=== PATIENT | female | born 1990 ===

== ENCOUNTER 2017-12-31 17:03 | Emergency (ER) | payer SELFPAY ==
[2017-12-31 17:24] VITALS: BP 130/85; PULSE 85; RESP 16; TEMP 98; O2SAT 100
--- NOTE | 2017-12-31 19:25 | ED PDOC ---
HPI: Skin/Bite Injury Time Seen by Provider: 12/31/17 17:32 Chief Complaint (Nursing): Bite Chief Complaint (Provider): Bite History Per: Patient History/Exam Limitations: no limitations Onset/Duration Of Symptoms: Days (x1) Location Of Injury: Right: Hand (2nd digit) Additional Complaint(s): Sandra Arceo is a 27 year old female, with no significant past medical history, who presents to the emergency department after she was bit by a rat on the right hand 2nd digit onset last night. Patient's tetanus is not up to date. She denies any numbness, weakness, redness or swelling. No further medical complaints. PMD: Flavio Cottrell - Animal Bite Description Of The Attack: Unprovoked Attack Description Of The Animal: Other (rat) Past Medical History Reviewed: Historical Data, Nursing Documentation, Vital Signs Vital Signs: Last Vital Signs Temp 98.0 F 12/31/17 17:22 Pulse 85 12/31/17 17:22 Resp 16 12/31/17 17:22 BP 130/85 12/31/17 17:22 Pulse Ox 100 12/31/17 19:29 - Medical History PMH: No Chronic Diseases - Surgical History Surgical History: No Surg Hx - Family History Family History: States: Unknown Family Hx - Social History Current smoker - smoking cessation education provided: No Alcohol: None Drugs: Denies - Home Medications Home Medications: Ambulatory Orders Medication Instructions Recorded Cephalexin [Keflex] 500 mg PO Q6 #28 capsule 12/31/17 - Allergies Allergies/Adverse Reactions: Allergies Allergy/AdvReac Type Severity Reaction Status Date / Time No Known Allergies Allergy Verified 12/31/17 17:21 Review of Systems ROS Statement: Except As Marked, All Systems Reviewed And Found Negative Musculoskeletal: Negative for: Hand Pain (right hand, swelling or redness) Neurological: Negative for: Weakness, Numbness Physical Exam - Reviewed Nursing Documentation Reviewed: Yes Vital Signs Reviewed: Yes - Physical Exam Appears: Positive for: Well, Non-toxic, No Acute Distress Head Exam: Positive for: ATRAUMATIC, NORMAL INSPECTION, NORMOCEPHALIC Skin: Positive for: Normal Color, Warm, Dry Eye Exam: Positive for: Normal appearance Respiratory: Negative for: Respiratory Distress Pulses-Radial (L): 2+ Pulses-Radial (R): 2+ Extremity: Positive for: Normal ROM (right hand), Capillary Refill (normal). Negative for: Tenderness (right hand), Deformity (right hand), Swelling (right hand) Neurologic/Psych: Positive for: Alert, dynamics ax technical architect II-XII, Oriented. Negative for: Motor/Sensory Deficits - ECG O2 Sat by Pulse Oximetry: 100 (RA) Pulse Ox Interpretation: Normal Medical Decision Making Medical Decision Making: Initial Impression: Rat bite Initial Plan: --Adacel 0.5 ml IM Patient given tetanus and instructed on proper wound care. Advised to follow up with primary care physician in 1-2 days without fail. Advised to take medication as prescribed. Return to the emergency room at any time for any new or worsening symptoms. Patient states she fully agrees with and understands discharge instructions. States that she agrees with the plan and disposition. Verbalized and repeated discharge instructions and plan. I have given the patient opportunity to ask any additional questions. ~ Scribe Attestation: Documented by Bridger Thornton, acting as a scribe for Ambika Hodge PA-C. Provider Scribe Attestation: All medical record entries made by the Scribe were at my direction and personally dictated by me. I have reviewed the chart and agree that the record accurately reflects my personal performance of the history, physical exam, medical decision making, and the department course for this patient. I have also personally directed, reviewed, and agree with the discharge instructions and disposition. Disposition - Clinical Impression Clinical Impression: Rat bite - Patient ED Disposition Is Patient to be Admitted: No Counseled Patient/Family Regarding: Diagnosis, Need For Followup, Rx Given - Disposition Referrals: [facility] [Outside] Disposition Time: 18:40 Condition: STABLE Additional Instructions: Thank you for letting us take care of you today. You were treated for rat bite. The emergency medical care you received today was directed at your acute symptoms. If you were prescribed any medication, please fill it and take as directed. It may take several days for your symptoms to resolve. Return to the Emergency Department if your symptoms worsen, do not improve, or if you have any other problems. Please contact your doctor in 2 days for re-evaluation and follow up / or call one of the physicians/clinics you have been referred to that are listed on the Patient Visit Information form that is included in your discharge packet. Bring any paperwork you were given at discharge with you along with any medications you are taking to your follow up visit. Our treatment cannot replace ongoing medical care by a primary care provider (PCP) outside of the emergency department. Thank you for allowing the [facility] team to be part of your care today. Prescriptions: Cephalexin [Keflex] 500 mg PO Q6 #28 capsule Instructions: Acute Wound Care (ED) Forms: [employer] (Divehi), [facility] ED School/Work Excuse Print Language: UZBEK - PA / PENCIL MAKER / Resident Statement MD/DO has reviewed & agrees with the documentation as recorded.
== END 2017-12-31 18:53 | disposition home or self-care (01) ==
LOC: H.ER 17:03
DX: S69.91XA Unspecified injury of right wrist, hand and finger(s), initial encounter (principal); W53.11XA Bitten by rat, initial encounter; Y92.89 Other specified places as the place of occurrence of the external cause

== ENCOUNTER 2018-03-20 17:57 | Emergency (ER) | payer SELFPAY ==
[2018-03-20 18:05] VITALS: BP 122/76; PULSE 87; RESP 16; TEMP 98; O2SAT 99
--- NOTE | 2018-03-20 19:14 | ED PDOC ---
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 Patient states she started her control pill on 02/27/18 and had a test done then which was negative. Patient states she took the 21st active pill yesterday and today noticed vaginal bleeding with the "tissue" discharge as well. Sobeidanet states she called her OBGYN's office and was advised to come to the ER for evaluation. She reports pelvic cramping, but states it is similar to her menstrual cramps. Otherwise, patient denies any fever, chills, chest pain, lightheadedness, weakness, dizziness. She has no other medical complaints. Past Medical History Reviewed: Historical Data, Nursing Documentation, Vital Signs Vital Signs: Last Vital Signs Temp 98 F 03/20/18 18:02 Pulse 87 03/20/18 18:02 Resp 16 03/20/18 18:02 BP 122/76 03/20/18 18:02 Pulse Ox 99 03/20/18 18:02 - Medical History PMH: No Chronic Diseases - Surgical History Surgical History: No Surg Hx - Family History Family History: States: No Known Family Hx, Unknown Family Hx - Living Arrangements Living Arrangements: With Family - Home Medications Home Medications: Ambulatory Orders Medication Instructions Recorded Cephalexin [Keflex] 500 mg PO Q6 #28 capsule 12/31/17 - Allergies Allergies/Adverse Reactions: Allergies Allergy/AdvReac Type Severity Reaction Status Date / Time No Known Allergies Allergy Verified 12/31/17 17:21 Review of Systems ROS Statement: Except As Marked, All Systems Reviewed And Found Negative Constitutional: Negative for: Fever, Chills, Weakness Cardiovascular: Negative for: Chest Pain, Light Headedness Genitourinary Female: Positive for: Vaginal Discharge, Vaginal Bleeding Physical Exam - Reviewed Nursing Documentation Reviewed: Yes Vital Signs Reviewed: Yes - Physical Exam Appears: Positive for: Non-toxic, No Acute Distress Head Exam: Positive for: ATRAUMATIC, NORMAL INSPECTION, NORMOCEPHALIC Skin: Positive for: Normal Color Eye Exam: Positive for: Normal appearance Neck: Positive for: Normal, Supple Cardiovascular/Chest: Positive for: Regular Rate, Rhythm Respiratory: Positive for: Normal Breath Sounds. Negative for: Respiratory Distress Gastrointestinal/Abdominal: Positive for: Normal Exam, Soft. Negative for: Tenderness Neurologic/Psych: Positive for: Alert, Oriented. Negative for: Motor/Sensory Deficits - ECG O2 Sat by Pulse Oximetry: 99 (RA) Pulse Ox Interpretation: Normal Medical Decision Making Medical Decision Making: Impression: Menstrual period Plan: -- Patient informed that at the end of her active pill cycle on hormonal control, she will have her menstrual cycle. Informed that it is normal for clot like discharge to occur. Patient instructed that if she feels more pain than her normal menstrual cycle, or dizziness, weakness, lightheadedness she should return to the ER immediately for evaluation. Otherwise, patient is with a normal exam and is stable for discharge home. Scribe Attestation: Documented by Maugi Baron, acting as a scribe for VIET Trinh. Provider Scribe Attestation: All medical record entries made by the Scribe were at my direction and personally dictated by me. I have reviewed the chart and agree that the record accurately reflects my personal performance of the history, physical exam, medical decision making, and the department course for this patient. I have also personally directed, reviewed, and agree with the discharge instructions and disposition. Disposition - Clinical Impression Clinical Impression: Normal menstrual period - Disposition Disposition: Routine/Home Disposition Time: 19:00 Condition: STABLE Instructions: Menstruation Forms: [employer] (Azeri) Print Language: LITHUANIAN
== END 2018-03-20 19:25 | disposition home or self-care (01) ==
LOC: H.ER 17:57
DX: N89.8 Other specified noninflammatory disorders of vagina (principal)